=== PATIENT | female | born 1980 | race Caucasian/White ===

== ENCOUNTER 2017-10-10 03:23 | Emergency (ER) | payer MEDICAID, OTHER ==
[~2017-10-10] VITALS: Ht 162.6 cm; Wt 76.4 kg
[~2017-10-10 03:23] MED LIST: DOXY100T20 PO; HYDR-762 PO; METR500T PO; PROM25TA14 PO
[2017-10-10 03:29] VITALS: Ht 162.6 cm; Wt 76.4 kg
[2017-10-10] MEDS ORDERED: ONDANSETRON (ODT) 4 MG TAB ODT STA (05:09)
[2017-10-10] MEDS ORDERED: ABCC1C PO ×4 (05:26→05:37)
[2017-10-10] MEDS ORDERED: ONDA4TAB14 PO (05:26)
[2017-10-10] MEDS ORDERED: ACET/BUTAL/CAFF/CODEINE CAP PO ONE (05:30)
--- NOTE | 2017-10-10 05:53 | ERD ---
ER Documentation Chief Complaint Chief Complaint HEADACHE X 2 DAYS HPI 37-year-old male presents here to emergency department for complaints of headache for 2 days. Persistent complaint of headache, history of migraine headaches, patient describes the headache as throbbing pain, 6/10 scale, accompanied with nausea and light sensitivity. Patient denies any head injury. Patient denies any nausea vomiting. Patient denies any vision changes. Patient denies any fever chills, denies any neck pain. ROS All systems reviewed and are negative except as per history of present illness. Medications Home Meds Active Scripts Ffukpxycdkqdc-Psatnugxdi-Vaoqzbjk-Codeine* (Fioricet w/Codeine*) [id number] -30MG Cap, 1 CAP PO Q4H Y for PAIN LEVEL 1-5, #20 CAP Prov:KUN ALONSO NP 10/10/17 Ondansetron (Ondansetron Odt) 4 Mg Tab.rapdis, 4 MG PO Q6H Y for NAUSEA AND/OR VOMITING, #10 TAB Prov:KUN ALONSO NP 10/10/17 Promethazine Hcl* (Phenergan*) 25 Mg Tablet, 12.5 MG PO Q6 Y for NAUSEA AND/OR VOMITING, #10 TAB Prov:CANDACE ESTRADA MD 06/29/15 Hydrocodone Bit-Acetaminophen* ([place]*) 10-325 Mg Tablet, 1 TAB PO Q8 Y for PAIN , #10 TAB Prov:CANDACE ESTRADA MD 06/29/15 Doxycycline Hyclate* (Doxycycline Hyclate*) 100 Mg Tablet.dr, 100 MG PO BID for 14 Days, TAB Prov:CANDACE ESTRADA MD 06/29/15 Metronidazole* (Flagyl*) 500 Mg Tablet, 500 MG PO BID for 14 Days, TAB Prov:CANDACE ESTRADA MD 06/29/15 Discontinued Scripts Clebgloirzbum-Jpiqgbrihr-Jffonqst-Codeine* (Fioricet w/Codeine*) [id number] -30MG Cap, 1 CAP PO Q4H Y for PAIN LEVEL 1-5, #20 CAP Prov:KUN ALONSO NP 10/10/17 Allergies Allergies: Coded Allergies: No Known Allergy (Verified , 8/31/15) PMhx/Soc Medical and Surgical Hx: pt denies Medical Hx, pt denies Surgical Hx Hx Alcohol Use: No Hx Substance Use: No Hx Tobacco Use: No FmHx Family History: No coronary disease, No diabetes, No other Physical Exam Vitals Vital Signs Date Time Temp Pulse Resp B/P Pulse Ox O2 Delivery O2 Flow Rate FiO2 10/10/17 03:29 96.8 72 20 137/83 99 Physical Exam GENERAL: The patient is well developed and appropriate for usual state of health, in no apparent distress. CHEST: Clear to auscultation bilaterally. There are no rales, wheezes or rhonchi. HEART: Regular rate and rhythm. No murmurs, clicks, rubs or gallops. No S3 or S4. ABDOMEN: Soft, nontender and nondistended. Good bowel sounds. No rebound or guarding. No gross peritonitis. No gross organomegaly or masses. No Metzger sign or McBurney point tenderness. BACK: No midline or flank tenderness. EXTREMITIES: Equal pulses bilaterally. There is no peripheral clubbing, cyanosis or edema. No focal swelling or erythema. Full range of motion. Grossly neurovascularly intact. NEURO: Alert and oriented. Cranial nerves 2-12 intact. Motor strength in all 4 extremities with 5/5 strength. Sensation grossly intact. Normal speech and gait. Negative Romberg. Negative pronator drift. SKIN: There is no apparent rash or petechia. The skin is warm and dry. HEMATOLOGIC AND LYMPHATIC: There is no evidence of excessive bruising or lymphedema. No gross cervical, axillary, or inguinal lymphadenopathy. Results 24 hrs Current Medications Medications (Trade) Dose Ordered Sig/Chioma Route PRN Reason Start Time Stop Time Status Last Admin Dose Admin Acetam/Butalbital/ Caffeine/Codeine (Fioricet/ Codeine) 1 cap ONCE ONCE PO 10/10/17 05:30 10/10/17 05:31 DC Ondansetron HCl (Zofran Odt) 4 mg ONCE STAT ODT 10/10/17 05:09 10/10/17 05:10 DC Patient was given medication for pain here in emergency department, after treatment, patient verbalized feeling much better. Patient's pain is improved. Procedures/MDM Medical Decision Making: Patient symptoms are consistent with migraine headache , possible tension headache. There is low suspicion for neurological emergencies at this time since patients neurologic exam is normal. Patient did not have any altered level consciousness, vomiting, changes in balance or memory and did not have any head injury. Patients CT scan of the head not indicated at this time, and multiple tests done before. Patient's headache is chronic. Patient was advised to follow-up with primary care doctor and possibly see a neurologist specialist within 3-5 days. Patient was advised to return to emergency department for any worsening symptoms. Rx: Fioricet with codeine, Zofran Dispostion: Home. Stable Disclaimer: Inadvertent spelling and grammatical errors are likely due to EHR/ dictation software use and do not reflect on the overall quality of patient care. Also, please note that the electronic time recorded on this note does not necessarily reflect the actual time of the patient encounter. Departure Diagnosis: Primary Impression: Headache Headache type: unspecified Headache chronicity pattern: unspecified pattern Intractability: not intractable Qualified Code: R51 - Nonintractable headache, unspecified chronicity pattern, unspecified headache type Condition: Stable Patient Instructions: Self-Care for Headaches Referrals: [facility] Usted se watters hecho un examen mdico de control que le indica que no est en cristela condicin que requiera tratamiento urgente en el Departamento de Emergencia. Un estudio ms profundo y el tratamiento de eddy condicin pueden esperar sin ningn riesgo hasta que usted sea atendida/o en el consultorio de eddy mdico o cristela cl jessica. Es responsabilidad suya arreglar cristela anna para el seguimiento del clotilde. MANEJO DE CONDICIONES NO URGENTES EN EL FUTURO 1) Si usted tiene un mdico de atencin primaria: Usted debera llamar a eddy mdico de atencin primaria antes de venir al departamento de emergencia. Despus de las horas de consultorio, eddy doctor o eddy asociado/a est disponible por telfono. El mdico o enfermero de ba en el servicio telefnico puede asesorarle por nubia medio para atender el problema, o clotilde contrario se puede programar cristela anna. 2) Si usted no tiene un mdico de atencin primaria: Llame al mdico o clnica de referencia que aparece abajo shawn las horas de consultorio para hacer cristela anna para que le vean. CLINICAS: [facility] [phone] [facility] [phone] [facility] [phone] [place] [id number] [phone] [place] [address] [phone] [facility] [phone] [address] [facility]. [facility] () Usted se watters hecho un examen mdico de control que le indica que no est en cristela condicin que requiera tratamiento urgente en el Departamento de Emergencia. Un estudio ms profundo y el tratamiento de eddy condicin pueden esperar sin ningn riesgo hasta que usted sea atendida/o en el consultorio de eddy mdico o cristela cl jessica. Es responsabilidad suya arreglar cristela anna para el seguimiento del clotilde. MANEJO DE CONDICIONES NO URGENTES EN EL FUTURO 1) Si usted tiene un mdico de atencin primaria: Usted debera llamar a eddy mdico de atencin primaria antes de venir al departamento de emergencia. Despus de las horas de consultorio, eddy doctor o eddy asociado/a est disponible por telfono. El mdico o enfermero de ba en el servicio telefnico puede asesorarle por nubia medio para atender el problema, o clotilde contrario se puede programar cristela anna. 2) Si usted no tiene un mdico de atencin primaria: Llame al mdico o condado institucions de referencia que aparece abajo shawn las horas de consultorio para hacer cristela anna para que le vean. SI USTED NO PUEDE PAGAR PARA FEMI UN MEDICO puede ir a: [facility] [address] [place] [address] [facility] [address] [place] [address] [facility] [address] [place] [address] [facility] [address] [place], [place] [id number] CUISIA,KUN Almonte NP Oct 10, 2017 05:53
[2017-10-10 06:15] VITALS: BP 138/76; PULSE 79; RESP 16; TEMP 98.2
== END 2017-10-10 06:20 | disposition home or self-care (01) ==
LOC: FTE 03:23
DX: R51 Headache (principal); R11.0 Nausea
CPT/HCPCS: 99283